=== PATIENT | female | born 1965 | race Caucasian/White ===

== ENCOUNTER 2018-12-15 12:41 | Emergency (ER) | payer MEDICAID ==
[~2018-12-15] VITALS: Ht 149.9 cm; Wt 92.6 kg
[2018-12-15 12:57] VITALS: BP 138/75
--- NOTE | 2018-12-15 13:04 | NUR ---
PT AMB TO ER BED 2
--- NOTE | 2018-12-15 13:10 | NUR ---
53/F BIB SELF C/O LOW LT ABD PAIN X 2 MTHS & UPPER NAV ABDOMEN X 4 DAYS. PAIN 7 SENT HER BY [facility] FOR ER MD [id number]. HX FIBER MYALGIA, HTN. PATIENT POSITIONED FOR COMFORT; HOB ELEVATED; BEDRAILS UP X1; BED DOWN. ER MD MADE AWARE OF PT STATUS.
--- NOTE | 2018-12-15 13:20 | NUR ---
Dr. Stevens evaluating patient at bedside.
[2018-12-15] MEDS ORDERED: NACL 0.9% 1,000 ML IV ONE (13:54)
[2018-12-15] MEDS ORDERED: NACL 0.9% 1,000 ML IV SCH (13:54)
[2018-12-15] MEDS ORDERED: KETOROLAC 30 MG/ML VIAL IVP ONE (13:55)
[2018-12-15] MEDS ORDERED: ONDANSETRON 4 MG/2 ML VIAL IVP ONE (13:55)
[2018-12-15] MEDS ORDERED: MORPHINE SULFATE 4 MG/ML SYR IVP ONE (13:55)
[2018-12-15 14:52] LABS: BASOPHILS # (AUTO) 0.1 K/uL (0.00-0.22); BASOPHILS % (AUTO) 0.9 % (0.0-2.0); EOSINOPHILS # (AUTO) 0.1 K/uL (0-0.4); EOSINOPHILS % (AUTO) 1.4 % (0.0-4.0); HEMATOCRIT 38.8 % (36-48); HEMOGLOBIN 12.4 g/dL (12.0-16.0); LYMPHOCYTES # (AUTO) 1.8 K/uL (2.5-16.5); LYMPHOCYTES % (AUTO) 18.5 % (20.5-51.1); MEAN CORPUSCULAR HEMOGLOBIN 26 pg (27-31); MEAN CORPUSCULAR HGB CONC 32 g/dL (33-37); MONOCYTES # (AUTO) 0.6 K/uL (0.8-1.0); MONOCYTES % (AUTO) 6.4 % (1.7-9.3); NEUTROPHILS # (AUTO) 6.9 K/uL (1.8-7.7); NEUTROPHILS % (AUTO) 72.8 % (42.2-75.2); PLATELET COUNT (AUTO) 299 K/uL (140-450); RED BLOOD CELL COUNT(AUTO) 4.86 MIL/uL (4.20-5.40); RED CELL DISTRIBUTION WIDTH 16.8 % (11.6-13.7); WHITE BLOOD COUNT (AUTO) 9.5 K/uL (4.8-10.8)
[2018-12-15 15:07] LABS: ANION GAP 7.2 (8-16); CARBON DIOXIDE 30.7 mmol/L (21-32); CREATININE 0.7 mg/dL (0.6-1.3); POTASSIUM 3.9 mmol/L (3.5-5.1)
[2018-12-15 15:14] LABS: APPEARANCE,URINE CLEAR (CLEAR); BILIRUBIN,URINE NEGATIVE (NEGATIVE); BLOOD, URINE NEGATIVE (NEGATIVE); COLOR,URINE YELLOW (YELLOW); LEUKOCYTE ESTERASE ,URINE NEGATIVE (NEGATIVE); NITRITE, URINE NEGATIVE (NEGATIVE); UGLUCOSE NEGATIVE (NEGATIVE)
[2018-12-15 15:19] LABS: ALBUMIN 3.2 g/dL (3.4-5.0); TOTAL BILIRUBIN 0.3 mg/dL (0.0-1.0)
[2018-12-15] MEDS ORDERED: LORazepam 1 MG TAB PO ONE (15:20)
[2018-12-15 16:50] VITALS: BP 123/72
--- NOTE | 2018-12-15 16:50 | NUR ---
Patient discharged with v/s stable. Written and verbal after care instructions given and explained. Patient alert, oriented and verbalized understanding of instructions. Ambulatory with steady gait. All questions addressed prior to discharge. ID band removed. Patient advised to follow up with PMD. Rx of LIBRAX given. Patient educated on indication of medication including possible reaction and side effects. Opportunity to ask questions provided and answered.
== END 2018-12-15 16:50 | disposition home or self-care (01) ==
LOC: MED 12:41
DX: G89.29 Other chronic pain (principal); K58.9 Irritable bowel syndrome, unspecified; I10 Essential (primary) hypertension; Z97.5 Presence of (intrauterine) contraceptive device
CPT/HCPCS: 36415; 74176; 80053; 81003; 81025; 82150; 83690; 85025; 96374; 96375; 99284; J1885; J2270; J2405; J7030

== ENCOUNTER 2019-08-01 10:16 | Emergency (ER) | payer MEDICAID ==
[~2019-08-01] VITALS: Ht 152.4 cm; Wt 92.5 kg
[2019-08-01 10:19] VITALS: BP 117/74
--- NOTE | 2019-08-01 10:31 | NUR ---
PT TO RESTROOM WITH DAUGHTER TO PROVIDE URINE SAMPLE. AMBULATORY WITH STEADY GAIT
[2019-08-01] MEDS ORDERED: NACL 0.9% 1,000 ML IV SCH (10:53)
--- NOTE | 2019-08-01 10:53 | NUR ---
BIB DAUGHTER C/O LOWER RIGHT ABDOMINAL PAIN RADIATING TO RIGHT LEG AND BACK WITH PINS AND NEEDLES FEELING X 2 DAYS. NAUSEA/DIARRHEA PRESENT, NO VOMITING. PAIN INCREASES WITH ACTIVITY. NO FEVER PRESENT
[2019-08-01] MEDS ORDERED: ONDANSETRON 4 MG/2 ML VIAL IVP ONE (10:55)
[2019-08-01] MEDS ORDERED: MORPHINE SULFATE 4 MG/ML SYR IVP ONE (10:55)
[2019-08-01 11:14] LABS: BASOPHILS # (AUTO) 0.1 K/uL (0.00-0.22); BASOPHILS % (AUTO) 0.8 % (0.0-2.0); EOSINOPHILS # (AUTO) 0.1 K/uL (0-0.4); EOSINOPHILS % (AUTO) 1.5 % (0.0-4.0); HEMATOCRIT 40.4 % (36-48); HEMOGLOBIN 12.8 g/dL (12.0-16.0); LYMPHOCYTES # (AUTO) 1.6 K/uL (2.5-16.5); LYMPHOCYTES % (AUTO) 21.6 % (20.5-51.1); MEAN CORPUSCULAR HEMOGLOBIN 26 pg (27-31); MEAN CORPUSCULAR HGB CONC 32 g/dL (33-37); MEAN CORPUSCULAR VOLUME 81.1 fL (80-94); MONOCYTES # (AUTO) 0.4 K/uL (0.8-1.0); NEUTROPHILS # (AUTO) 5.2 K/uL (1.8-7.7); NEUTROPHILS % (AUTO) 70.1 % (42.2-75.2); PLATELET COUNT (AUTO) 311 K/uL (140-450); RED BLOOD CELL COUNT(AUTO) 4.99 MIL/uL (4.20-5.40); RED CELL DISTRIBUTION WIDTH 17.6 % (11.6-13.7); WHITE BLOOD COUNT (AUTO) 7.5 K/uL (4.8-10.8)
--- NOTE | 2019-08-01 11:26 | NUR ---
PT REFUSED MORPHINE MED AND REQUESTED TYLENOL. MORPHINE WAS RETURNED
[2019-08-01] MEDS ORDERED: ACETAMINOPHEN 325 MG TAB PO ONE (11:30)
[2019-08-01 11:35] LABS: CARBON DIOXIDE 28.5 mmol/L (21-32); CREATININE 0.9 mg/dL (0.6-1.3); TOTAL BILIRUBIN 0.4 mg/dL (0.0-1.0)
[2019-08-01 11:36] LABS: ALBUMIN 3.5 g/dL (3.4-5.0)
[2019-08-01 11:40] LABS: ANION GAP 14.9 (8-16); POTASSIUM 4.2 mmol/L (3.5-5.1)
--- NOTE | 2019-08-01 12:05 | NUR ---
PT TRANSPORTED TO CT VIA WHEELCHAIR
--- NOTE | 2019-08-01 12:16 | NUR ---
PT WHEELED BACK FROM CT. AT BEDSIDE.
[2019-08-01] MEDS ORDERED: KETOROLAC 30 MG/ML VIAL IVP ONE (12:50)
[2019-08-01] MEDS ORDERED: CIPROFLOXACIN 250 MG TAB PO ONE (13:10)
[2019-08-01] MEDS ORDERED: metroNIDAZOLE 250 MG TAB PO ONE (13:10)
--- NOTE | 2019-08-01 14:00 | NUR ---
MD SPOKE WITH PT AT BEDSIDE----DISPO HOME IS AGREED
[2019-08-01 14:49] VITALS: BP 130/75
--- NOTE | 2019-08-01 14:50 | NUR ---
Patient discharged with v/s stable. Written and verbal after care instructions given and explained. Patient alert, oriented and verbalized understanding of instructions. Ambulatory with steady gait. All questions addressed prior to discharge. ID band removed. Patient advised to follow up with PMD. Rx of NORCO, FLAGYL, CIPROFLOXACIN given. Patient educated on indication of medication including possible reaction and side effects. Opportunity to ask questions provided and answered.
== END 2019-08-01 14:50 | disposition home or self-care (01) ==
LOC: MED 10:16
DX: K57.90 Diverticulosis of intestine, part unspecified, without perforation or abscess without bleeding (principal); G89.29 Other chronic pain; I10 Essential (primary) hypertension
CPT/HCPCS: 36415; 74177; 80053; 81002; 81025; 82150; 83690; 85025; 96361; 96374; 96375; 99284; J1885; J2405; J7030; Q9967; J2270

== ENCOUNTER 2020-03-19 17:19 | Emergency (ER) | payer MEDICAID ==
[~2020-03-19] VITALS: Ht 157.5 cm; Wt 88.9 kg
[2020-03-19 17:34] VITALS: BP 109/65
--- NOTE | 2020-03-19 17:41 | NUR ---
PT AMBULATED TO BATHROOM, STEADY GAIT.
[2020-03-19] MEDS: KETOROLAC 30 MG/ML VIAL IVP ONE (18:10)
--- NOTE | 2020-03-19 18:10 | NUR ---
US tech at bedside for exam.
[2020-03-19] MEDS: ONDANSETRON 4 MG/2 ML VIAL IVP ONE (18:11)
--- NOTE | 2020-03-19 18:18 | NUR ---
55 Y/O FEMALE PRESENTS WITH EPIGASTRIC PAIN X1 WEEK THAT HAS WORSENED IN THE LAST TWO DAYS, 9/10 PAIN. C/O NAUSEA AND CONSTIPATION X2 DAYS. LAST BM WAS 2 DAYS AGO. PT STATES PAIN SHOOTS DOWN TO HER RIGHT GROIN AREA AND RADIATES TO RIGHT LEG. ABD SOFT/ NON DISTENDED. VSS. AAOX4. PMH: DIVERTICULITIS, HTN ALLERGIES: SULFAS
[2020-03-19 18:21] LABS: APPEARANCE,URINE CLEAR (CLEAR); BILIRUBIN,URINE NEGATIVE (NEGATIVE); BLOOD, URINE TRACE-I (NEGATIVE); COLOR,URINE YELLOW (YELLOW); LEUKOCYTE ESTERASE ,URINE NEGATIVE (NEGATIVE); NITRITE, URINE NEGATIVE (NEGATIVE); PH,URINE 5.5 (5.0-9.0); UGLUCOSE NEGATIVE (NEGATIVE)
[2020-03-19 18:26] LABS: RBC,URINE 0-5 /HPF (0-5); WBC,URINE 0-5 /HPF (0-5)
[2020-03-19 18:31] LABS: BASOPHILS # (AUTO) 0.1 K/uL (0.00-0.22); EOSINOPHILS # (AUTO) 0.1 K/uL (0-0.4); EOSINOPHILS % (AUTO) 1.2 % (0.0-4.0); HEMATOCRIT 39.5 % (36-48); HEMOGLOBIN 12.5 g/dL (12.0-16.0); LYMPHOCYTES # (AUTO) 1.5 K/uL (2.5-16.5); LYMPHOCYTES % (AUTO) 18.6 % (20.5-51.1); MEAN CORPUSCULAR HEMOGLOBIN 26 pg (27-31); MEAN CORPUSCULAR HGB CONC 32 g/dL (33-37); MEAN CORPUSCULAR VOLUME 83.5 fL (80-94); MONOCYTES # (AUTO) 0.6 K/uL (0.8-1.0); MONOCYTES % (AUTO) 7.7 % (1.7-9.3); NEUTROPHILS # (AUTO) 5.7 K/uL (1.8-7.7); NEUTROPHILS % (AUTO) 71.5 % (42.2-75.2); PLATELET COUNT (AUTO) 299 K/uL (140-450); RED BLOOD CELL COUNT(AUTO) 4.73 MIL/uL (4.20-5.40); RED CELL DISTRIBUTION WIDTH 16.5 % (11.6-13.7)
--- NOTE | 2020-03-19 18:44 | NUR ---
Patient taken to CT scan via wheelchair by tech.
--- NOTE | 2020-03-19 18:44 | NUR ---
PT TAKEN TO CT VIA WC
--- NOTE | 2020-03-19 19:30 | NUR ---
RECEIVED REPORT FROM [facility] FOR CONTINUITY OF CARE.
--- NOTE | 2020-03-19 19:33 | NUR ---
PT RESTING IN BED, CHEST RISE AND FALL NOTED. NO NEW COMPLAINS AT THIS TIME. WILL CONTINUE TO MONITOR.
[2020-03-19 20:10] LABS: ALBUMIN 3.2 g/dL (3.4-5.0); ANION GAP 9.7 (8-16); CARBON DIOXIDE 29.1 mmol/L (21-32); POTASSIUM 3.8 mmol/L (3.5-5.1); TOTAL BILIRUBIN 0.3 mg/dL (0.0-1.0)
[2020-03-19 20:29] VITALS: BP 118/70
--- NOTE | 2020-03-19 20:30 | NUR ---
Patient discharged with v/s stable. Written and verbal after care instructions given and explained. Patient alert, oriented and verbalized understanding of instructions. Ambulatory with steady gait. All questions addressed prior to discharge. ID band removed. Patient advised to follow up with PMD. Rx of MOTRIN, NORCO, CIPRO, FLAGYL given. Patient educated on indication of medication including possible reaction and side effects. Opportunity to ask questions provided and answered.
== END 2020-03-19 20:30 | disposition home or self-care (01) ==
LOC: MED 17:19
DX: K57.92 Diverticulitis of intestine, part unspecified, without perforation or abscess without bleeding (principal); R11.0 Nausea; I10 Essential (primary) hypertension; Z98.890 Other specified postprocedural states; Z88.2 Allergy status to sulfonamides
CPT/HCPCS: 36415; 74176; 76705; 80053; 81001; 81025; 83690; 85025; 96374; 96375; 99285; J1885; J2405; Q0092

== ENCOUNTER 2022-06-18 19:36 | Emergency (ER) | payer MEDICAID, OTHER ==
[~2022-06-18] VITALS: Ht 152.4 cm; Wt 93.9 kg
[2022-06-18 20:03] VITALS: BP 103/66
--- NOTE | 2022-06-18 20:18 | NUR ---
Patient ambulated to room 2. Patient resting in bed, on monitor.
[2022-06-18 20:56] LABS: BASOPHILS # (AUTO) 0.1 K/uL (0.00-0.22); EOSINOPHILS # (AUTO) 0.1 K/uL (0-0.4); HEMATOCRIT 39.9 % (36-48); HEMOGLOBIN 12.7 g/dL (12.0-16.0); LYMPHOCYTES # (AUTO) 1.7 K/uL (2.5-16.5); LYMPHOCYTES % (AUTO) 22.8 % (20.5-51.1); MEAN CORPUSCULAR HEMOGLOBIN 27 pg (27-31); MEAN CORPUSCULAR HGB CONC 32 g/dL (33-37); MEAN CORPUSCULAR VOLUME 86.4 fL (80-94); MONOCYTES # (AUTO) 0.7 K/uL (0.8-1.0); MONOCYTES % (AUTO) 9.4 % (1.7-9.3); NEUTROPHILS # (AUTO) 4.8 K/uL (1.8-7.7); NEUTROPHILS % (AUTO) 64.8 % (42.2-75.2); PLATELET COUNT (AUTO) 240 K/uL (140-450); RED BLOOD CELL COUNT(AUTO) 4.62 MIL/uL (4.20-5.40); RED CELL DISTRIBUTION WIDTH 16.1 % (11.6-13.7); WHITE BLOOD COUNT (AUTO) 7.4 K/uL (4.8-10.8)
[2022-06-18] MEDS ORDERED: ALBUTEROL SULFATE/IPRATROPIU 3 ML SOL IH ONE (21:00)
[2022-06-18 21:17] LABS: ALBUMIN 3.1 g/dL (3.4-5.0); ANION GAP 10.3 (8-16); ASPARTATE AMINOTRANSFERASE 16 U/L (15-37); CHLORIDE 105 mmol/L (98-107); GFR ARICAN-AMERICAN 74 mL/min (>90); GLUCOSE 95 mg/dL (74-106); POTASSIUM 4.3 mmol/L (3.5-5.1); SODIUM SERUM 140 mmol/L (136-145); TOTAL BILIRUBIN 0.2 mg/dL (0.0-1.0); UREA NITROGEN, BLOOD 17 mg/dL (7-18)
[2022-06-18] MEDS ORDERED: ALBU0.0912 IH (21:59)
[2022-06-18] MEDS ORDERED: PRED20TA5 PO (21:59)
== END 2022-06-18 22:15 | disposition home or self-care (01) ==
LOC: MED 19:36
DX: J20.9 Acute bronchitis, unspecified (principal); Z20.822 Contact with and (suspected) exposure to COVID-19; I10 Essential (primary) hypertension; M79.7 Fibromyalgia; Z79.899 Other long term (current) drug therapy
CPT/HCPCS: 36415; 71045; 80053; 82948; 84484; 85025; 87426; 87804; 93005; 94640; 99285; Q0092

== ENCOUNTER 2022-08-27 20:05 | Emergency (ER) | payer OTHER ==
[~2022-08-27] VITALS: Ht 162.6 cm; Wt 92.5 kg
[~2022-08-27 20:05] MED LIST: ALBU0.0912 IH; PRED20TA5 PO
[2022-08-27 20:08] VITALS: BP 132/58
--- NOTE | 2022-08-27 20:14 | NUR ---
TO BR FOR [facility] FOLLOWING TRIAGE, THEN TO LOBBY
--- NOTE | 2022-08-27 20:18 | NUR ---
TO BED 11
--- NOTE | 2022-08-27 20:36 | NUR ---
57 Y/O F presents with R groin pain 02/16 that radiates to R leg and R back x3days. pt denies any NVD and no blood thinners. PMH- pt denies allergies- sulfa antibiotics
--- NOTE | 2022-08-27 22:37 | NUR ---
ER at bedside
--- NOTE | 2022-08-27 22:39 | NUR ---
Patient being evaluated by physician at bedside.
--- NOTE | 2022-08-27 22:39 | NUR ---
Dr. Molina examining patient.
[2022-08-27] MEDS ORDERED: KETOROLAC 30 MG/ML VIAL IVP ONE (22:45)
--- NOTE | 2022-08-27 23:03 | NUR ---
Pt to CT
[2022-08-27 23:04] LABS: BASOPHILS # (AUTO) 0.1 K/uL (0.00-0.22); BASOPHILS % (AUTO) 0.8 % (0.0-2.0); EOSINOPHILS # (AUTO) 0.1 K/uL (0-0.4); EOSINOPHILS % (AUTO) 1.8 % (0.0-4.0); HEMATOCRIT 37.5 % (36-48); HEMOGLOBIN 12.2 g/dL (12.0-16.0); LYMPHOCYTES # (AUTO) 1.8 K/uL (2.5-16.5); LYMPHOCYTES % (AUTO) 25.1 % (20.5-51.1); MEAN CORPUSCULAR HEMOGLOBIN 28 pg (27-31); MEAN CORPUSCULAR HGB CONC 33 g/dL (33-37); MEAN CORPUSCULAR VOLUME 85.9 fL (80-94); MONOCYTES # (AUTO) 0.5 K/uL (0.8-1.0); MONOCYTES % (AUTO) 7.6 % (1.7-9.3); NEUTROPHILS # (AUTO) 4.6 K/uL (1.8-7.7); NEUTROPHILS % (AUTO) 64.7 % (42.2-75.2); PLATELET COUNT (AUTO) 242 K/uL (140-450); RED BLOOD CELL COUNT(AUTO) 4.36 MIL/uL (4.20-5.40); RED CELL DISTRIBUTION WIDTH 15.7 % (11.6-13.7); WHITE BLOOD COUNT (AUTO) 7.2 K/uL (4.8-10.8)
--- NOTE | 2022-08-27 23:15 | NUR ---
pt back from CT
[2022-08-27 23:31] LABS: APPEARANCE,URINE CLEAR (CLEAR); BILIRUBIN,URINE NEGATIVE (NEGATIVE); BLOOD, URINE TRACE-I (NEGATIVE); COLOR,URINE YELLOW (YELLOW); LEUKOCYTE ESTERASE ,URINE NEGATIVE (NEGATIVE); NITRITE, URINE NEGATIVE (NEGATIVE); UGLUCOSE NEGATIVE (NEGATIVE)
[2022-08-27 23:37] LABS: RBC,URINE 0-5 /HPF (0-5); WBC,URINE 0-5 /HPF (0-5)
[2022-08-27 23:44] LABS: ALBUMIN 3.5 g/dL (3.4-5.0); ANION GAP 11.6 (8-16); CARBON DIOXIDE 28.2 mmol/L (21-32); CREATININE 0.8 mg/dL (0.6-1.3); POTASSIUM 3.8 mmol/L (3.5-5.1); TOTAL BILIRUBIN 0.3 mg/dL (0.0-1.0)
[2022-08-28] MEDS ORDERED: ACET-8905 PO (01:48)
[2022-08-28] MEDS ORDERED: IBUP-2213 PO (01:48)
[2022-08-28 01:53] VITALS: BP 135/70
--- NOTE | 2022-08-28 01:53 | NUR ---
Patient discharged with v/s stable. Written and verbal after care instructions given and explained. Patient alert, oriented and verbalized understanding of instructions. Ambulatory with steady gait. All questions addressed prior to discharge. ID band removed. Patient advised to follow up with PMD. Rx of NORCO, MOTRIN given. Patient educated on indication of medication including possible reaction and side effects. Opportunity to ask questions provided and answered.
== END 2022-08-28 01:53 | disposition home or self-care (01) ==
LOC: MED 20:05
DX: R10.31 Right lower quadrant pain (principal); Z79.899 Other long term (current) drug therapy; Z98.890 Other specified postprocedural states; Z88.2 Allergy status to sulfonamides
CPT/HCPCS: 36415; 74176; 80053; 81001; 83690; 85025; 96374; 99284; J1885; 99281